=== PATIENT | female | born 1955 | race Asian ===

== ENCOUNTER 2020-02-27 18:57 | Emergency (ER) | payer OTHER ==
[~2020-02-27] VITALS: Ht 167.6 cm; Wt 58.1 kg
[2020-02-27 19:58] VITALS: Ht 167.6 cm; Wt 58.1 kg
[2020-02-27 23:48] LABS: microscopic required? NO
[2020-02-28 00:21] LABS: UA SPECIFIC GRAVITY 1.015 (1.005-1.035); urine erythrocyte NEGATIVE (NEGATIVE)
[2020-02-28 03:36] VITALS: BP 110/66
== END 2020-02-28 03:36 | disposition home or self-care (01) ==
LOC: ED 18:57
PROVIDERS: Emergency Medicine
DX: R10.30 Lower abdominal pain, unspecified (principal); R10.2 Pelvic and perineal pain; K76.89 Other specified diseases of liver
CPT/HCPCS: Q0092